=== PATIENT | female | born 2000 | race African-American/Black ===

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

== ENCOUNTER 2019-03-04 17:09 | Emergency (ER) | payer OTHER, SELFPAY ==
[2019-03-04 17:45] LABS: Bilirubin Negative (Negative); Blood, Urine Large (Negative); Clarity TURBID (Clear); Glucose, Urine (Dipstick) Negative (Negative); Leukocyte Moderate (Negative); Nitrite Negative (Negative); Protein, Urine (Dipstick) 30 mg/dL (Neg-Trace); Specific Gravity, Urine 1.034 (1.002-1.036)
[2019-03-04 17:47] LABS: Pregnancy Test - Urine (BHCG) POSITIVE (Negative); Pregu Control Background? CLEAR/WHITE (CLR/WHITE); Pregu Control Bar Appear? YES (CONTROL BAR); Specific Gravity 1.034 (1.002-1.036)
[2019-03-04 17:49] LABS: Pathc Cast-AUWi Flag 7.48 (0-2.49); Yeast-AUWi Flag 218.9 (0-25.0)
[2019-03-04 17:59] LABS: Transitional Epithelial 0-3 HPF (0-3)
[2019-03-04 18:00] LABS: Bacteria/HPF 1+ HPF (None Seen); Hyaline Casts/LPF NONE SEEN LPF (0-3 Hyaline); Renal Epithelial None Seen HPF (0-3)
--- NOTE | 2019-03-04 19:20 | ULT ---
TRANSABDOMINAL AND ENDOVAGINAL PELVIC ULTRASOUND: 03/04/19 HISTORY: patient with vaginal bleeding. COMPARISON: None. TECHNIQUE: Transabdominal and endovaginal imaging of the pelvis is performed. Ovaries are interrogated with mensah scale, color flow, doppler imaging with spectral waveform analysis. FINDINGS: The uterus is identified measuring 7.3 x 3.8 x 4.3 cm. Within the endometrium, there is a gestational sac and yolk sac. A definite pole is not appreci ated. Mean gestational sac diameter is 0.79 cm corresponding to a gestational age of 5 weeks, 4 days. There is a small amount of fluid in the cul-de-sac. Anechoic focus left ovary measuring 2.6 x 2.8 x 3.3 cm may represent a corpus luteal cyst. Overall, t he left ovary measures 4.2 x 3.2 x 3.9 cm. Right ovary has a normal echotexture, measuring 1.8 x 2.6 x 1.6 cm. OVARIAN DOPPLER: Vascular flow to the left and right ovary. IMPRESSION: 1. Anechoic focus in the endometrium likely representing a gestational sac with associated yolk sac. A definite pole is not seen. Absence of a pole may be secondary to an early gestatio nal age. Correlate with serum beta HCG. Serial serum beta HCG and ultrasounds are recommended. 2. Presume left ovarian corpus luteal cyst. POS: [facility]
[2019-03-04 19:31] LABS: #Basophils 0.1 thou/uL (0.0-0.2); #Lymphocytes 2.7 thou/uL (1.20-3.40); #Monocytes 0.5 thou/uL (0.11-0.59); #Neutrophils 2.2 thou/uL (1.40-6.50); %Basophils 2.2 % (0.0-1.0); %Eosinophils 0.1 % (0.0-10.0); %Lymphocytes 49.2 % (28.0-48.0); %Neutrophils 39.6 % (31.0-61.0); Hemoglobin 12.5 g/dL (12.0-16.0); Mean Corpuscular Hemoglobin 29.9 pg (25.0-35.0); Mean Corpuscular Volume 90.6 fL (78.0-98.0); Mean Platelet Volume 7.4 fL (7.4-10.4); Platelet Count 267 thou/uL (130-400); RBC Distribution Width 12.9 % (11.5-14.5); Red Blood Cell (RBC) Count 4.18 mill/uL (4.00-5.20); White Blood Cell (WBC) Count 5.5 thou/uL (4.8-10.8)
[2019-03-04] MEDS ORDERED: Lidocaine 1% PF 5 ML VIAL ONE (19:59)
[2019-03-04] MEDS ORDERED: cefTRIAXone\\ROCEPHIN 1 GM VIAL ONE (19:59)
== END 2019-03-04 20:19 | disposition home or self-care (01) ==
LOC: ERS 17:09
DX: O20.0 Threatened abortion (principal); O23.41 Unspecified infection of urinary tract in pregnancy, first trimester; O99.341 Other mental disorders complicating pregnancy, first trimester; F90.9 Attention-deficit hyperactivity disorder, unspecified type; O99.331 Smoking (tobacco) complicating pregnancy, first trimester; Z79.899 Other long term (current) drug therapy; Z3A.01 Less than 8 weeks gestation of pregnancy
CPT/HCPCS: 36415; 76856; 81003; 81015; 81025; 84702; 85025; 86900; 86901; 96372; J0696; J2001

== ENCOUNTER 2019-09-21 19:47 | Emergency (ER) | payer OTHER | END 2019-09-21 20:50 | disposition home or self-care (01) | LOC: ERS 19:47 | DX: J06.9 Acute upper respiratory infection, unspecified (principal); F90.9 Attention-deficit hyperactivity disorder, unspecified type; F17.290 Nicotine dependence, other tobacco product, uncomplicated; Z79.899 Other long term (current) drug therapy | CPT/HCPCS: 99281 ==

== ENCOUNTER 2020-01-12 19:04 | Emergency (ER) | payer OTHER ==
[2020-01-12] MEDS ORDERED: Ondansetron ODT 4 MG TAB ONE (19:39)
[2020-01-12 19:49] LABS: Bilirubin Negative (Negative); Blood, Urine Negative (Negative); Clarity Clear (Clear); Glucose, Urine (Dipstick) Normal (Negative); Leukocyte 250 Leu/uL (Negative); Nitrite Negative (Negative); Protein, Urine (Dipstick) 10 mg/dL (Neg-Trace)
[2020-01-12 19:57] LABS: Bacteria/HPF 1+ HPF (None Seen)
[2020-01-12 20:21] LABS: #Basophils 0.1 thou/uL (0.0-0.2); #Eosinphils 0.1 thou/uL (0.0-0.7); #Lymphocytes 3.5 thou/uL (1.20-3.40); #Monocytes 0.6 thou/uL (0.11-0.59); #Neutrophils 5.1 thou/uL (1.40-6.50); %Basophils 0.8 % (0.0-1.0); %Eosinophils 0.5 % (0.0-10.0); %Lymphocytes 37.3 % (28.0-48.0); %Monocytes 6.5 % (0.0-4.0); %Neutrophils 54.9 % (31.0-61.0); Hemoglobin 12.5 g/dL (12.0-16.0); Mean Corpuscular HGB CONC 33.7 g/dL (32.0-36.0); Mean Corpuscular Hemoglobin 31.2 pg (25.0-35.0); Mean Corpuscular Volume 92.4 fL (78.0-98.0); Mean Platelet Volume 8.1 fL (7.4-10.4); Platelet Count 283 thou/uL (130-400); RBC Distribution Width 13.3 % (11.5-14.5); Red Blood Cell (RBC) Count 4.02 mill/uL (4.00-5.20); White Blood Cell (WBC) Count 9.3 thou/uL (4.8-10.8)
[2020-01-12 21:08] LABS: ALT (SGPT) Less than 7 U/L (8-55); AST (SGOT) 17 U/L (5-34); Albumin 3.9 g/dL (3.5-5.0); Alkaline Phosphatase 85 U/L (40-100); Anion Gap 13 mmol/L (10-20); BUN (Urea Nitrogen) 9 mg/dL (7.0-18.7); Bilirubin, Total 0.3 mg/dL (0.2-1.2); Calc. Creatinine Clearance 0 mL/min (70-130); Carbon Dioxide 20 mmol/L (22-29); Chloride 108 mmol/L (98-107); Estimated GFR-MDRD Greater than 90; Globulin 2.9 g/dL (2.4-3.5); Glucose 86 mg/dL (70-105); Potassium 4.1 mmol/L (3.5-5.1); Protein, Total 6.8 g/dL (6.0-8.3); Sodium 137 mmol/L (136-145)
== END 2020-01-12 22:06 | disposition home or self-care (01) ==
LOC: ERS 19:04
DX: O21.9 Vomiting of pregnancy, unspecified (principal); O99.341 Other mental disorders complicating pregnancy, first trimester; F90.9 Attention-deficit hyperactivity disorder, unspecified type; O99.331 Smoking (tobacco) complicating pregnancy, first trimester; F17.290 Nicotine dependence, other tobacco product, uncomplicated; Z3A.01 Less than 8 weeks gestation of pregnancy
CPT/HCPCS: 80053; 81003; 81015; 84702; 85025; 86900; 86901; 96360; Q0162

== ENCOUNTER 2020-03-05 13:54 | Emergency (ER) | payer OTHER | END 2020-03-05 14:17 | disposition home or self-care (01) | LOC: ERS 13:54 | DX: R09.81 Nasal congestion (principal); F90.9 Attention-deficit hyperactivity disorder, unspecified type; F17.290 Nicotine dependence, other tobacco product, uncomplicated; Z79.899 Other long term (current) drug therapy | CPT/HCPCS: 99281 ==